=== PATIENT | female | born 1990 | race Hispanic/Latino ===

== ENCOUNTER 2017-02-17 09:56 | Observation (INO) | payer MEDICAID ==
[2017-02-17 11:23] LABS: APPEARANCE,URINE CLEAR (CLEAR); BILIRUBIN,URINE NEGATIVE (NEGATIVE); COLOR,URINE YELLOW (YELLOW); GLUCOSE, URINE (UA) NEGATIVE (NEGATIVE); KETONES,URINE NEGATIVE (NEGATIVE); LEUKOCYTE ESTERASE ,URINE NEGATIVE (NEGATIVE); NITRATE,URINE NEGATIVE (NEGATIVE); OCCULT BLOOD,URINE TRACE-INTACT (NEGATIVE); PROTEIN,URINE NEGATIVE (NEGATIVE); UROBILINOGEN,URINE 0.2 mg/dL (0.2-1.0)
[2017-02-17 11:46] LABS: BACTERIA,URINE Moderate /HPF (None Seen); RBC,URINE 0-1 /HPF (0-1)
== END 2017-02-17 18:55 | disposition home or self-care (01) ==
LOC: EDH 09:56 → LDH 10:11
PROVIDERS: ADMIT Internal Medicine; ATTEND Internal Medicine
DX: O26.893 Other specified pregnancy related conditions, third trimester (principal); R10.30 Lower abdominal pain, unspecified; M54.9 Dorsalgia, unspecified; Z3A.37 37 weeks gestation of pregnancy
CPT/HCPCS: 81001; 99285; G0378 ×9

== ENCOUNTER 2017-02-18 00:36 | Inpatient (IN) | payer MEDICAID ==
[~2017-02-18] VITALS: Ht 160 cm; Wt 92.5 kg
[2017-02-18] VITALS (10 sets, daily range): BP systolic 102–119; BP diastolic 38–74
[2017-02-18 01:03] LABS: APPEARANCE,URINE Clear (CLEAR); BILIRUBIN,URINE Negative (NEGATIVE); COLOR,URINE Yellow (YELLOW); GLUCOSE, URINE (UA) Negative (NEGATIVE); KETONES,URINE Negative (NEGATIVE); LEUKOCYTE ESTERASE ,URINE Small (NEGATIVE); NITRATE,URINE Negative (NEGATIVE); OCCULT BLOOD,URINE Negative (NEGATIVE); PROTEIN,URINE Negative (NEGATIVE)
[2017-02-18] MEDS ORDERED: CEFAZOLIN SODIUM 1 GM VIAL IVP PRN (01:15)
[2017-02-18] MEDS: LACTATED RINGERS 1000ML 1,000 ML IV SCH ×2 (01:25→03:47)
[2017-02-18 01:42] LABS: HEMATOCRIT 30.5 % (36-48); MEAN CORPUSCULAR HEMOGLOBIN 25.7 pg (27.0-33.0); MEAN CORPUSCULAR VOLUME 80.1 fL (79-99); PLATELET COUNT (AUTO) 249 K/uL (130-400); RED BLOOD CELL COUNT(AUTO) 3.81 MIL/uL (4.00-5.50); RED CELL DISTRIBUTION WIDTH 15.9 % (11.0-15.5); WHITE BLOOD COUNT (AUTO) 8.6 K/uL (4.8-10.8)
[2017-02-18 01:44] LABS: BACTERIA,URINE None Seen /HPF (None Seen); RBC,URINE None Seen /HPF (0-1); WBC,URINE 0-1 /HPF (0-1)
[2017-02-18 01:45] LABS: SQUAMOUS EPITHELIAL CELL,UR Few /LPF (0-2)
[2017-02-18 01:52] LABS: AMPHET/METH SCREEN,URINE NEGATIVE (NEGATIVE); BARBITURATE SCREEN, URINE NEGATIVE (NEGATIVE); BENZODIAZEPINES SCREEN,URINE NEGATIVE (NEGATIVE); CANNABINOID SCREEN,URINE NEGATIVE (NEGATIVE); COCAINE SCREEN,URINE NEGATIVE (NEGATIVE); OPIATE SCREEN,URINE NEGATIVE (NEGATIVE); PHENCYCLIDINE SCREEN,URINE NEGATIVE (NEGATIVE)
[2017-02-18] MEDS ORDERED: TERBUTALINE SULFATE VIAL 1MG/ML SQ ONE (01:57)
[2017-02-18] MEDS ORDERED: TERBUTALINE SULFATE VIAL 1MG/ML SQ SCH (02:00)
[2017-02-18] MEDS ORDERED: LACTATED RINGERS 1000ML 1,000 ML IV SCH (02:00)
[2017-02-18] MEDS: TERBUTALINE SULFATE VIAL 1MG/ML SQ SCH ×2 (03:02→03:46)
[2017-02-18] MEDS ORDERED: CALDOLOR 800MG+NS 250ML 250 ML IV ONE (07:21)
[2017-02-18] MEDS ORDERED: MIDAZOLAM HCL 1 MG/ML 2ML VIAL ONE (08:18)
[2017-02-18] MEDS ORDERED: FENTANYL CITRATE PF 50 MCG/1 ML 5ML AMP IV ONE (08:18)
[2017-02-18] MEDS ORDERED: GLYCOPYRROLATE 0.2 MG/ML 5 ML VIAL ONE ×2 (08:18→08:21)
[2017-02-18] MEDS ORDERED: ROCURONIUM 10MG/1ML SYR 10 MG/ML ML ONE (08:18)
[2017-02-18] MEDS ORDERED: PROPOFOL 10 MG/ML 20ML VIAL IV ONE ×2 (08:18→08:44)
[2017-02-18] MEDS ORDERED: LIDOCAINE 2%-EPI 1:200,000 20 ML VIAL IJ ONE (08:18)
[2017-02-18] MEDS ORDERED: LIDOCAINE HCL-MPF 1% 2ML VIAL ONE (08:18)
[2017-02-18] MEDS ORDERED: LIDOCAINE PF 2% 5ML ABBOJECT ONE (08:18)
[2017-02-18] MEDS ORDERED: LIDOCAINE HCL-MPF 2% 10ML AMP IJ ONE (08:18)
[2017-02-18] MEDS ORDERED: LIDOCAINE HCL 4% TOP SOL 50ML MM ONE (08:18)
[2017-02-18] MEDS ORDERED: NEOSTIGMINE METHYLSULFATE 1MG/ML IV ONE (08:18)
[2017-02-18] MEDS ORDERED: DEXAMETHASONE SOD PHOSPHATE 10MG/ML 1ML VIAL ONE (08:18)
[2017-02-18] MEDS ORDERED: MEPERIDINE-PF 25 MG/ML SYG ONE (09:08)
[2017-02-18] MEDS ORDERED: OXYTOCIN-LR 20 UNITS/1000 ML 1,000 ML IV PRN (09:16)
[2017-02-18] MEDS ORDERED: SODIUM CHLORIDE 0.9% 10 ML VIAL IVP PRN (09:30)
[2017-02-18] MEDS ORDERED: PROMETHAZINE HCL 25 MG/ML 1ML AMPULE IM PRN ×2 (09:30→11:00)
[2017-02-18] MEDS ORDERED: MEPERIDINE-PF 75 MG/ML SYG IM PRN (09:30)
[2017-02-18 09:34] LABS: RAPID PLASMA REAGIN NONREACTIVE (NONREACTIVE)
[2017-02-18] MEDS ORDERED: OXYTOCIN 10 USP UNITS/ML ONE (10:32)
[2017-02-18] MEDS ORDERED: NALOXONE HCL 0.4 MG/1 ML ML IVP PRN (11:00)
[2017-02-18] MEDS ORDERED: EPHEDRINE SULFATE 50 MG/ML AMPULE IVP PRN (11:00)
[2017-02-18] MEDS ORDERED: ONDANSETRON HCL 4 MG/2 ML VIAL IVP PRN ×2 (11:00)
[2017-02-18] MEDS ORDERED: METOCLOPRAMIDE 10 MG/2 ML VIAL IVP PRN (11:00)
[2017-02-18] MEDS ORDERED: MORPHINE SULFATE 2 MG/ML 1ML SYG IVP PRN (11:00)
[2017-02-18] MEDS ORDERED: HYDROCODONE/ACETAMINOPHEN 5/325 MG TAB PO PRN (11:00)
[2017-02-18] MEDS ORDERED: DiphenhydrAMINE HCL 50 MG/ML VIAL IVP PRN (11:00)
[2017-02-18] MEDS ORDERED: ONDANSETRON HCL 4 MG/2 ML 8 MG in SODIUM CHLORIDE 0.9% 50 ML IVP NR (11:00)
[2017-02-18 12:23] LABS: HEMATOCRIT 20.8 % (36-48)
[2017-02-18] MEDS: HYDROCODONE/ACETAMINOPHEN 5/325 MG TAB PO PRN (14:31)
[2017-02-18] MEDS: CALDOLOR 800MG+NS 250ML 250 ML IV SCH (17:45)
[2017-02-18] MEDS: DEXTROSE 5 %-0.45 % NACL 1,000 ML IV PRN (17:45)
[2017-02-18] MEDS: FLU VACC QS2017-18 36MOS UP/PF 60 MCG/0.5 ML ML IM SCH (18:58)
[2017-02-18 22:13] LABS: HEMATOCRIT 27.1 % (36-48)
[2017-02-19] MEDS: CALDOLOR 800MG+NS 250ML 250 ML IV SCH (00:56)
[2017-02-19 03:05] VITALS: BP 100/47
[2017-02-19] MEDS: DEXTROSE 5 %-0.45 % NACL 1,000 ML IV PRN (03:09)
[2017-02-19 05:23] LABS: HEMATOCRIT 23.5 % (36-48); MEAN CORPUSCULAR HEMOGLOBIN 28.1 pg (27.0-33.0); MEAN CORPUSCULAR HGB CONC 34.2 g/dL (32.0-36.0); MEAN CORPUSCULAR VOLUME 82.3 fL (79-99); NUCLEATED RED BLOOD CELLS 0.1 % (0.0-0.19); PLATELET COUNT (AUTO) 182 K/uL (130-400); RED BLOOD CELL COUNT(AUTO) 2.86 MIL/uL (4.00-5.50); RED CELL DISTRIBUTION WIDTH 16.8 % (11.0-15.5); WHITE BLOOD COUNT (AUTO) 7.4 K/uL (4.8-10.8)
[2017-02-19] MEDS ORDERED: LANOLIN 30GM OINTMENT TP PRN (07:45)
[2017-02-19] MEDS ORDERED: BISACODYL 10 MG SUPP.RECT RC PRN (07:45)
[2017-02-19] MEDS ORDERED: ACETAMINOPHEN-CODEINE 300/30MG TAB PO PRN (07:45)
[2017-02-19 07:54] VITALS: BP 107/64
[2017-02-19 08:16] LABS: HEPATITIS Bs ANTIGEN SCREEN P Negative (Negative)
[2017-02-19] MEDS: IBUPROFEN 600 MG TABLET PO PRN ×2 (08:44→16:10)
[2017-02-19] MEDS: SIMETHICONE 80 MG TAB.CHEW PO PRN ×2 (08:44→21:02)
[2017-02-19] MEDS: DOCUSATE SODIUM 100 MG CAP PO SCH ×2 (08:44→21:00)
[2017-02-19 11:40] VITALS: BP 121/65
[2017-02-19] MEDS: DIPH,PERTUSS(ACELL),TET VAC/PF 0.5 ML VIAL IM SCH (11:54)
[2017-02-19] MEDS: MEASLES/MUMPS/RUBELLA VACCINE, LIVE 0.5 ML/VIAL SQ SCH (11:55)
[2017-02-19 16:15] VITALS: BP 120/81
[2017-02-19] MEDS: FLU VACC QS2017-18 36MOS UP/PF 60 MCG/0.5 ML ML IM SCH (18:00)
[2017-02-19 20:22] VITALS: BP 101/57
[2017-02-19] MEDS: HYDROCODONE/ACETAMINOPHEN 5/325 MG TAB PO PRN (21:05)
[2017-02-19 23:05] VITALS: BP 94/48
[2017-02-20 03:15] VITALS: BP_SYST 95; BP_SYST 98; BP_DIAS 52; BP_DIAS 54
[2017-02-20 06:42] LABS: HEMATOCRIT 24.9 % (36-48); MEAN CORPUSCULAR HEMOGLOBIN 27.2 pg (27.0-33.0); MEAN CORPUSCULAR HGB CONC 32.7 g/dL (32.0-36.0); MEAN CORPUSCULAR VOLUME 83.4 fL (79-99); PLATELET COUNT (AUTO) 175 K/uL (130-400); RED BLOOD CELL COUNT(AUTO) 2.98 MIL/uL (4.00-5.50); WHITE BLOOD COUNT (AUTO) 6.4 K/uL (4.8-10.8)
[2017-02-20] MEDS: DIPH,PERTUSS(ACELL),TET VAC/PF 0.5 ML VIAL IM SCH (07:45)
[2017-02-20] MEDS: MEASLES/MUMPS/RUBELLA VACCINE, LIVE 0.5 ML/VIAL SQ SCH (07:45)
[2017-02-20 07:58] VITALS: BP 96/56
[2017-02-20] MEDS: DOCUSATE SODIUM 100 MG CAP PO SCH (09:22)
[2017-02-20] MEDS: SIMETHICONE 80 MG TAB.CHEW PO PRN (09:22)
[2017-02-20] MEDS: IBUPROFEN 600 MG TABLET PO PRN (09:23)
[2017-02-20 11:45] VITALS: BP 105/53
== END 2017-02-20 12:40 | disposition home or self-care (01) | DRG 540 ==
LOC: EDH 00:36 → LDH 00:40 → OBSVTOIN 00:40 → WSH 10:50
PROVIDERS: ADMIT Internal Medicine; ATTEND Internal Medicine
PROC: 3E0234Z Introduction of Serum, Toxoid and Vaccine into Muscle, Percutaneous Approach (ICD-10-PCS; 2017-02-18)
PROC: 3E0134Z Introduction of Serum, Toxoid and Vaccine into Subcutaneous Tissue, Percutaneous Approach (ICD-10-PCS; 2017-02-18)
PROC: 30233N1 Transfusion of Nonautologous Red Blood Cells into Peripheral Vein, Percutaneous Approach (ICD-10-PCS; 2017-02-18)
PROC: 10D00Z1 Extraction of Products of Conception, Low, Open Approach (ICD-10-PCS; 2017-02-18)
PROC: 3E0234Z Introduction of Serum, Toxoid and Vaccine into Muscle, Percutaneous Approach (ICD-10-PCS; principal; 2017-02-18 08:00)
DX: O34.211 Maternal care for low transverse scar from previous cesarean delivery (principal); J45.909 Unspecified asthma, uncomplicated; O99.62 Diseases of the digestive system complicating childbirth; K80.20 Calculus of gallbladder without cholecystitis without obstruction; O99.513 Diseases of the respiratory system complicating pregnancy, third trimester; Z37.0 Single live birth; Z3A.37 37 weeks gestation of pregnancy; Z23 Encounter for immunization
CPT/HCPCS: 36415; 36430; 59510; 76805; 80305; 81001; 85027; 86592; 86701; 86850; 86900; 86901; 86922; 87340; 87390; 90707; 90715; 96372; A4344; A4606; G0378; J0690; J1100; J1741; J2001; J2175; J2250; J2590; J2704; J2710; J3010; J3105; J3490; J7030; J7120; P9016; Q2038

== ENCOUNTER 2018-03-04 21:59 | Emergency (ER) | payer MEDICAID, OTHER ==
[2018-03-04] MEDS ORDERED: ASPIRIN 325 MG TABLET ONE (22:29)
[2018-03-04 23:08] LABS: BASOPHILS % (AUTO) 0.8 % (0.0-5.0); EOSINOPHILS % (AUTO) 2.1 % (0.0-8.0); HEMATOCRIT 32.7 % (36-48); LYMPHOCYTES % (AUTO) 43.7 % (21.0-51.0); MEAN CORPUSCULAR HEMOGLOBIN 28.2 pg (27.0-33.0); MEAN CORPUSCULAR HGB CONC 32.7 g/dL (32.0-36.0); MEAN CORPUSCULAR VOLUME 86.3 fL (79-99); MONOCYTES % (AUTO) 9.7 % (3.0-13.0); NEUTROPHILS % (AUTO) 43.7 % (40.0-77.0); PLATELET COUNT (AUTO) 291 K/uL (130-400); RED BLOOD CELL COUNT(AUTO) 3.79 MIL/uL (4.00-5.50); RED CELL DISTRIBUTION WIDTH 15.2 % (11.0-15.5); WHITE BLOOD COUNT (AUTO) 7.8 K/uL (4.8-10.8)
[2018-03-04 23:12] LABS: CREATININE 0.7 mg/dL (0.5-1.5); POTASSIUM 4.3 mmol/L (3.5-5.1)
[2018-03-04 23:22] LABS: INR 0.94 (0.85-1.15); PARTIAL THROMBOPLASTIN TIME 32.5 SEC (26.3-35.5); PROTHROMBIN TIME 9.9 SEC (9.6-11.6)
[2018-03-04 23:32] LABS: ALBUMIN 3.9 g/dL (3.5-5.0); BILIRUBIN,TOTAL 0.2 mg/dL (0.2-1.0); TOTAL PROTEIN, SERUM 7.6 g/dL (6.0-8.3)
[2018-03-05] MEDS ORDERED: KETOROLAC TROMETHAMINE 30MG/ML ONE (01:10)
== END 2018-03-05 01:41 | disposition home or self-care (01) ==
LOC: EDH 21:59
DX: R07.89 Other chest pain (principal); J45.909 Unspecified asthma, uncomplicated; Z98.890 Other specified postprocedural states
CPT/HCPCS: 36415; 71045; 80053; 81025; 82550; 83874; 84484; 85025; 85378; 85610; 85730; 93005; 96374; 99284; J1885

== ENCOUNTER 2018-06-26 09:15 | Emergency (ER) | payer OTHER ==
[2018-06-26 09:59] LABS: BASOPHILS % (AUTO) 1.4 % (0.0-5.0); EOSINOPHILS % (AUTO) 1.3 % (0.0-8.0); HEMATOCRIT 33.8 % (36-48); LYMPHOCYTES % (AUTO) 26.4 % (21.0-51.0); MEAN CORPUSCULAR HGB CONC 32.6 g/dL (32.0-36.0); MEAN CORPUSCULAR VOLUME 82.8 fL (79-99); MONOCYTES % (AUTO) 7.1 % (3.0-13.0); NEUTROPHILS % (AUTO) 63.8 % (40.0-77.0); PLATELET COUNT (AUTO) 281 K/uL (130-400); RED BLOOD CELL COUNT(AUTO) 4.09 MIL/uL (4.00-5.50); RED CELL DISTRIBUTION WIDTH 16.2 % (11.0-15.5); WHITE BLOOD COUNT (AUTO) 8.7 K/uL (4.8-10.8)
[2018-06-26 10:16] LABS: CREATININE 0.6 mg/dL (0.5-1.5)
[2018-06-26 10:21] LABS: BILIRUBIN,TOTAL 0.2 mg/dL (0.2-1.0); TOTAL PROTEIN, SERUM 7.9 g/dL (6.0-8.3)
== END 2018-06-26 11:13 | disposition home or self-care (01) ==
LOC: EDH 09:15
DX: I89.0 Lymphedema, not elsewhere classified (principal)
CPT/HCPCS: 36415; 80053; 81025; 85025; 85378

== ENCOUNTER 2018-09-18 21:26 | Emergency (ER) | payer OTHER ==
[2018-09-18 21:55] LABS: APPEARANCE,URINE Cloudy (CLEAR); BILIRUBIN,URINE Negative (NEGATIVE); COLOR,URINE Yellow (YELLOW); GLUCOSE, URINE (UA) Negative (NEGATIVE); KETONES,URINE 15 mg/dL (NEGATIVE); LEUKOCYTE ESTERASE ,URINE Negative (NEGATIVE); NITRATE,URINE Negative (NEGATIVE); OCCULT BLOOD,URINE Negative (NEGATIVE); PH,URINE 5.5 (5.0-8.0); PROTEIN,URINE Trace mg/dL (NEGATIVE)
[2018-09-18 21:58] LABS: HCG,QUAL RESULT POSITIVE (NEGATIVE)
[2018-09-18 22:18] LABS: RBC,URINE None Seen /HPF (0-1); WBC,URINE 0-1 /HPF (0-1)
[2018-09-18 22:19] LABS: AMORPHOUS SEDIMENT,UR Few /LPF (None Seen); BACTERIA,URINE Few /HPF (None Seen); SQUAMOUS EPITHELIAL CELL,UR 0-2 /HPF (0-2)
[2018-09-18 23:29] LABS: BASOPHILS % (AUTO) 1.1 % (0.0-5.0); EOSINOPHILS % (AUTO) 1.6 % (0.0-8.0); HEMATOCRIT 30.8 % (36-48); LYMPHOCYTES % (AUTO) 27.8 % (21.0-51.0); MEAN CORPUSCULAR HEMOGLOBIN 26.8 pg (27.0-33.0); MONOCYTES % (AUTO) 8.8 % (3.0-13.0); NEUTROPHILS % (AUTO) 60.7 % (40.0-77.0); PLATELET COUNT (AUTO) 259 K/uL (130-400); RED BLOOD CELL COUNT(AUTO) 3.81 MIL/uL (4.00-5.50); RED CELL DISTRIBUTION WIDTH 16.2 % (11.0-15.5); WHITE BLOOD COUNT (AUTO) 10.1 K/uL (4.8-10.8)
[2018-09-18 23:39] LABS: CREATININE 0.7 mg/dL (0.5-1.5); POTASSIUM 3.5 mmol/L (3.5-5.1)
[2018-09-19 00:04] LABS: ALBUMIN 3.6 g/dL (3.5-5.0); BILIRUBIN,TOTAL 0.2 mg/dL (0.2-1.0); TOTAL PROTEIN, SERUM 7.2 g/dL (6.0-8.3)
== END 2018-09-19 00:40 | disposition home or self-care (01) ==
LOC: EDH 21:26
DX: O21.8 Other vomiting complicating pregnancy (principal); R53.1 Weakness; Z3A.01 Less than 8 weeks gestation of pregnancy
CPT/HCPCS: 36415; 76801; 80053; 81001; 81025; 82150; 83690; 84702; 85025; 96360

== ENCOUNTER 2018-09-25 18:37 | Emergency (ER) | payer OTHER ==
[2018-09-25] MEDS ORDERED: ONDANSETRON ODT 4 MG TAB ONE (18:52)
== END 2018-09-25 19:22 | disposition home or self-care (01) ==
LOC: EDH 18:37
DX: O21.0 Mild hyperemesis gravidarum (principal); Z3A.01 Less than 8 weeks gestation of pregnancy
CPT/HCPCS: 96372

== ENCOUNTER 2018-10-29 12:41 | Emergency (ER) | payer MEDICAID ==
[2018-10-29] MEDS ORDERED: ONDANSETRON HCL 4 MG/2 ML VIAL ONE (13:56)
[2018-10-29] MEDS ORDERED: SODIUM CHLORIDE 0.9% 1000ML 1,000 ML IV ONE (13:57)
[2018-10-29 15:29] LABS: BASOPHILS % (AUTO) 0.9 % (0.0-5.0); EOSINOPHILS % (AUTO) 0.8 % (0.0-8.0); HEMATOCRIT 31.9 % (36-48); LYMPHOCYTES % (AUTO) 19.5 % (21.0-51.0); MEAN CORPUSCULAR HEMOGLOBIN 27.6 pg (27.0-33.0); MEAN CORPUSCULAR VOLUME 83.7 fL (79-99); MONOCYTES % (AUTO) 8.8 % (3.0-13.0); PLATELET COUNT (AUTO) 236 K/uL (130-400); RED BLOOD CELL COUNT(AUTO) 3.81 MIL/uL (4.00-5.50); RED CELL DISTRIBUTION WIDTH 17.5 % (11.0-15.5)
[2018-10-29 15:36] LABS: CREATININE 0.7 mg/dL (0.5-1.5); POTASSIUM 3.1 mmol/L (3.5-5.1)
[2018-10-29 15:40] LABS: ALBUMIN 3.2 g/dL (3.5-5.0); BILIRUBIN,TOTAL 0.5 mg/dL (0.2-1.0); TOTAL PROTEIN, SERUM 7.1 g/dL (6.0-8.3)
[2018-10-29] MEDS ORDERED: POTASSIUM CHLORIDE 20 MEQ ERTAB PO ONE (15:42)
[2018-10-29] MEDS ORDERED: MAGNESIUM OXIDE 400 MG TABLET PO ONE (15:42)
== END 2018-10-29 16:01 | disposition home or self-care (01) ==
LOC: EDH 12:41
DX: O21.1 Hyperemesis gravidarum with metabolic disturbance (principal); Z3A.12 12 weeks gestation of pregnancy
CPT/HCPCS: 36415; 80053; 83690; 85025; 96361; 96374; 99285; J2405; J7030

== ENCOUNTER 2019-01-05 13:48 | Observation (INO) | payer MEDICAID | END 2019-01-05 15:50 | disposition home or self-care (01) | LOC: EDH 13:48 → LDH 14:19 | DX: O69.89X0 Labor and delivery complicated by other cord complications, not applicable or unspecified (principal); Z3A.23 23 weeks gestation of pregnancy | CPT/HCPCS: 59025; 76805; 99284; G0378 ×2 ==

== ENCOUNTER 2019-05-17 04:30 | Inpatient (IN) | payer MEDICAID ==
[~2019-05-17] VITALS: Ht 160 cm; Wt 101.2 kg
[2019-05-17] MEDS ORDERED: LACTATED RINGERS 1000ML IV ONE (05:00)
[2019-05-17 05:17] LABS: APPEARANCE,URINE Clear (CLEAR); BILIRUBIN,URINE Negative (NEGATIVE); COLOR,URINE Yellow (YELLOW); GLUCOSE, URINE (UA) Negative (NEGATIVE); KETONES,URINE Negative (NEGATIVE); LEUKOCYTE ESTERASE ,URINE Negative (NEGATIVE); NITRATE,URINE Negative (NEGATIVE); OCCULT BLOOD,URINE Moderate (NEGATIVE); PROTEIN,URINE Negative (NEGATIVE)
[2019-05-17 05:51] LABS: AMPHET/METH SCREEN,URINE NEGATIVE (NEGATIVE); BARBITURATE SCREEN, URINE NEGATIVE (NEGATIVE); BENZODIAZEPINES SCREEN,URINE NEGATIVE (NEGATIVE); CANNABINOID SCREEN,URINE NEGATIVE (NEGATIVE); COCAINE SCREEN,URINE NEGATIVE (NEGATIVE); OPIATE SCREEN,URINE NEGATIVE (NEGATIVE); PHENCYCLIDINE SCREEN,URINE NEGATIVE (NEGATIVE)
[2019-05-17] MEDS ORDERED: LACTATED RINGERS 1000ML 1,000 ML IV PRN (05:51)
[2019-05-17 05:55] VITALS: BP 123/70
[2019-05-17] MEDS ORDERED: ACET-2123 PO (06:00)
[2019-05-17 06:01] LABS: HEMATOCRIT 27.4 % (36-48); MEAN CORPUSCULAR HEMOGLOBIN 24.1 pg (27.0-33.0); MEAN CORPUSCULAR HGB CONC 29.9 g/dL (32.0-36.0); MEAN CORPUSCULAR VOLUME 80.6 fL (79-99); PLATELET COUNT (AUTO) 271 K/uL (130-400); RED CELL DISTRIBUTION WIDTH 15.9 % (11.0-15.5); WHITE BLOOD COUNT (AUTO) 8.8 K/uL (4.8-10.8)
[2019-05-17] MEDS ORDERED: LACTATED RINGERS 1000ML 1,000 ML IV SCH (07:00)
[2019-05-17 09:32] LABS: RAPID PLASMA REAGIN NONREACTIVE (NONREACTIVE)
[2019-05-17] MEDS ORDERED: CEFAZOLIN SODIUM 1 GM VIAL ONE (09:59)
[2019-05-17] MEDS ORDERED: CEFAZOLIN SODIUM 1 GM VIAL IVP PRN (11:30)
[2019-05-17] MEDS ORDERED: FENTANYL CITRATE PF 50 MCG/1 ML 2ML VIAL ONE (11:58)
[2019-05-17] MEDS ORDERED: DURAMORPH PF1 MG/ML 10ML AMP IV ONE (11:58)
[2019-05-17] MEDS ORDERED: CEFAZOLIN SODIUM 1 GM VIAL IVP ONE (12:02)
[2019-05-17] MEDS ORDERED: PROPOFOL 10 MG/ML 20ML VIAL IV ONE (12:23)
[2019-05-17] MEDS ORDERED: OXYTOCIN 10 UNIT/1ML 10ML VIAL ONE (12:27)
[2019-05-17] MEDS ORDERED: ONDANSETRON HCL 4 MG/2 ML VIAL ONE (13:10)
[2019-05-17] MEDS ORDERED: LANOLIN 30GM OINTMENT TP PRN (14:30)
[2019-05-17] MEDS ORDERED: DIPH,PERTUSS(ACELL),TET VAC/PF 0.5 ML VIAL IM SCH (14:30)
[2019-05-17] MEDS ORDERED: MEASLES/MUMPS/RUBELLA VACCINE, LIVE 0.5 ML/VIAL SQ SCH (14:30)
[2019-05-17] MEDS ORDERED: ACETAMINOPHEN EXTRA STRENGTH 500 MG TABLET PO PRN (14:30)
[2019-05-17] MEDS ORDERED: IBUPROFEN 600 MG TABLET PO PRN (14:30)
[2019-05-17] MEDS ORDERED: BISACODYL 10 MG SUPP.RECT RC PRN (14:30)
[2019-05-17] MEDS ORDERED: ACETAMINOPHEN-CODEINE 300/30MG TAB PO PRN (14:30)
[2019-05-17] MEDS ORDERED: CALDOLOR 800MG+NS 250ML 250 ML IV ONE (14:56)
[2019-05-17] MEDS ORDERED: OXYTOCIN-LR 20 UNITS/1000 ML 1,000 ML IV ONE (14:56)
[2019-05-17] MEDS ORDERED: DiphenhydrAMINE HCL 50 MG/ML VIAL IVP PRN (15:00)
[2019-05-17] MEDS ORDERED: EPHEDRINE SULFATE 50 MG/ML AMPULE IVP PRN (15:00)
[2019-05-17] MEDS ORDERED: ONDANSETRON HCL 4 MG/2 ML VIAL IVP PRN (15:00)
[2019-05-17] MEDS ORDERED: NALOXONE HCL 0.4 MG/1 ML ML IVP PRN ×2 (15:00)
[2019-05-17] MEDS ORDERED: MEPERIDINE HCL/PF 25 MG/0.5 ML AMPUL IV PRN (15:15)
[2019-05-17] MEDS ORDERED: LORATADINE 10 MG TABLET PO PRN (16:00)
[2019-05-17 17:03] LABS: BASOPHILS % (AUTO) 0.2 % (0.0-5.0); EOSINOPHILS % (AUTO) 0.2 % (0.0-8.0); HEMATOCRIT 25.4 % (36-48); LYMPHOCYTES % (AUTO) 14.8 % (21.0-51.0); MEAN CORPUSCULAR HGB CONC 29.5 g/dL (32.0-36.0); MEAN CORPUSCULAR VOLUME 81.2 fL (79-99); MONOCYTES % (AUTO) 6.4 % (3.0-13.0); NEUTROPHILS % (AUTO) 78.1 % (40.0-77.0); PLATELET COUNT (AUTO) 259 K/uL (130-400); RED BLOOD CELL COUNT(AUTO) 3.13 MIL/uL (4.00-5.50)
[2019-05-17 19:59] VITALS: BP 101/66
--- NOTE | 2019-05-17 20:23 | NUR ---
@2000 pt found sitting up in bed, explaining plan of care: assessment & corinna care with placement of disposable underwear for comfort; explaining plan for vs & fundal assessment with observation of bleeding & dressing included. Pt voices understanding & agrees to plan. Informing of normal feeling of soreness to incision, pt agrees, states "its a 6 right now but I don't need pain medications"; explaining Caldolor iv scheduled for 2300, and prn pain med available if needed. Pt agrees to plan. Spouse asleep at bedside; pt reports baby is in nursery. Encouraging clear liquids, pt agrees requesting jello; denies n/v at present. Encouraging changing position at least every 2 hours; pt states "yes, I have had gas pain before but i will stay here for now", explaining will return at 2200 to assist with turning, pt agrees to plan. Informing of plan to remove f/c and sit up in chair in am; pt agrees to plan. Encouraging pt to call for assistance or concerns, explaining normal rubra at present, instructing to call for increase bleeding or pain; pt agrees to teaching; nurse call button within reach, bed down & side rails up x two; SCD's in place; IV infusing at 150ml/hr via pump.
[2019-05-17] MEDS: DOCUSATE SODIUM 100 MG CAP PO SCH (21:50)
[2019-05-17] MEDS: CALDOLOR 800MG+NS 250ML 250 ML IV PRN (22:40)
--- NOTE | 2019-05-17 22:45 | NUR ---
Explaining Caldolor scheduled ivpb; reinforcing teaching on desired effects & possible common side effects, pt voices understanding , rates pain score at6/10. Addendum: 05/17/19 at 2553 by KENNETH CASANOVA RN RN Amended: Links added.
[2019-05-17 23:24] VITALS: BP 99/60
--- NOTE | 2019-05-17 23:29 | NUR ---
Pt reports Caldolor effects decreasing discomfort to incision at 4 out 10, requesting po pain med. Offering tylenol #3 po and explaining desired effects with common side effects; pt agrees to med administration. Addendum: 05/17/19 at 2331 by KENNETH CASANOVA RN RN Amended: Links added.
[2019-05-17] MEDS: HYDROCODONE/ACETAMINOPHEN 5/325 MG TAB PO PRN (23:39)
--- NOTE | 2019-05-17 23:40 | NUR ---
Pt requesting po prn pain med. 2 tablets [place] presented & reinforcing teaching on med; pt refusing 2 tablets, states "i only need one"; 1 tablet [place] given po
--- NOTE | 2019-05-18 00:55 | NUR ---
Pt requesting baby be taken to NBN until next feeding, states "i am really tired, have not slept all day"; Susanna Linda RN , NBN notified of pt request.
[2019-05-18 04:13] VITALS: BP 96/50
--- NOTE | 2019-05-18 04:45 | NUR ---
Explaining blood sample needed for ordered CBC; informing md ordering cbc due to anemia. Pt voices understanding & agrees to procedure.
[2019-05-18 04:55] LABS: BASOPHILS % (AUTO) 0.3 % (0.0-5.0); EOSINOPHILS % (AUTO) 0.9 % (0.0-8.0); HEMATOCRIT 22.9 % (36-48); MEAN CORPUSCULAR HEMOGLOBIN 24.2 pg (27.0-33.0); MEAN CORPUSCULAR HGB CONC 29.7 g/dL (32.0-36.0); MEAN CORPUSCULAR VOLUME 81.5 fL (79-99); MONOCYTES % (AUTO) 8.3 % (3.0-13.0); NEUTROPHILS % (AUTO) 67.2 % (40.0-77.0); PLATELET COUNT (AUTO) 210 K/uL (130-400); RED BLOOD CELL COUNT(AUTO) 2.81 MIL/uL (4.00-5.50); RED CELL DISTRIBUTION WIDTH 15.9 % (11.0-15.5)
--- NOTE | 2019-05-18 05:15 | NUR ---
Dr Albright notified of pt 5am hgb 6.8 & Hct 22; monique bird to scant tonight; Order received to keep RBC's on hold, & report pt s/s of anemia today.
[2019-05-18] MEDS ORDERED: DEXTROSE 5 %-0.45 % NACL 1,000 ML IV PRN (06:30)
[2019-05-18] MEDS: CALDOLOR 800MG+NS 250ML 250 ML IV PRN (06:43)
[2019-05-18 07:10] LABS: HEPATITIS Bs ANTIGEN SCREEN P Negative (Negative)
[2019-05-18 07:35] VITALS: BP 105/56
[2019-05-18] MEDS: SIMETHICONE 80 MG TAB.CHEW PO PRN ×3 (08:55→21:13)
[2019-05-18] MEDS: DOCUSATE SODIUM 100 MG CAP PO SCH ×2 (08:55→21:13)
--- NOTE | 2019-05-18 09:05 | NUR ---
DRESSING REMOVED. INCISION INTACT. STERISTRIPS AND TELFA PAD APPLIED. DON CATHETER REMOVED WITH TIP INTACT. PERICARE GIVEN. ASSISTED PATIENT OOB TO BEDSIDE CHAIR. NO DIZZINESS REPORTED. CALL LIGHT LEFT IN REACH. ADVISED PATIENT TO CALL WHEN NEEDING TO AMBULATE FOR THE FIRST TIME OR WITH ANY NEEDS OR CONCERNS.
[2019-05-18] MEDS ORDERED: ACETAMINOPHEN EXTRA STRENGTH 500 MG TABLET PO PRN ×2 (10:05→15:00)
[2019-05-18] MEDS: ACETAMINOPHEN-CODEINE 300/30MG TAB PO PRN ×2 (10:47→20:08)
[2019-05-18 11:25] VITALS: BP 98/52
--- NOTE | 2019-05-18 11:55 | NUR ---
PATIENT C/O PAIN TO SHOULDER . DULCOLAX SUPPOSITORY OFFERED, PATIENT DECLINED. ADVISED PATIENT TO AMBULATE AND PRUNE JUICE GIVEN.
--- NOTE | 2019-05-18 12:05 | NUR ---
LANOLIN GIVEN TO PATIENT. INSTRUCTED PATIENT ON USE AND DESIRED EFFECTS. PATIENT VOICED UNDERSTANDING.
--- NOTE | 2019-05-18 13:00 | NUR ---
ASSISTED PATIENT TO RESTROOM. PATIENT ABLE TO VOID, 300ML MEASURED. PATIENT WAS ASSISTED INTO BED, TOLERATED AMBULATION WELL. CALL LIGHT LEFT IN REACH. ADVISED PATIENT TO CALL WITH ANY NEEDS.
[2019-05-18] MEDS ORDERED: ACETAMINOPHEN-CODEINE 300/30MG TAB PO PRN (15:00)
[2019-05-18] MEDS ORDERED: IBUPROFEN 600 MG TABLET PO PRN (15:15)
--- NOTE | 2019-05-18 15:25 | NUR ---
UPDATED ON PATIENT'S STATUS VIA TELEPHONE. MD WILL ROUND ON PATIENT TOMORROW. NO NEW ORDERS RECEIVED.
[2019-05-18 16:07] VITALS: BP 109/59
--- NOTE | 2019-05-18 18:25 | NUR ---
PATIENT AMBULATING IN HALLWAY. NO DIZZINESS OR PAIN REPORTED.
[2019-05-18 19:26] VITALS: BP 119/55
[2019-05-18 23:59] VITALS: BP 103/56
[2019-05-19] MEDS: HYDROCODONE/ACETAMINOPHEN 5/325 MG TAB PO PRN (00:58)
[2019-05-19 03:48] VITALS: BP 95/56
[2019-05-19 07:21] VITALS: BP 112/57
[2019-05-19] MEDS: ACETAMINOPHEN-CODEINE 300/30MG TAB PO PRN (07:42)
[2019-05-19] MEDS: SIMETHICONE 80 MG TAB.CHEW PO PRN (09:16)
[2019-05-19] MEDS: DOCUSATE SODIUM 100 MG CAP PO SCH (09:16)
--- NOTE | 2019-05-19 09:20 | NUR ---
verbal and written discharge instructions given, informed of the follow up appointment,all questions answered. informed to call the doctor for future concerns, pt voiced understanding to all things discussed Addendum: 05/19/19 at 0931 by PRINCESS COONEY RN Amended: Links added.
[2019-05-19 11:33] VITALS: BP 108/59
[2019-05-19] MEDS ORDERED: IBUP-2070 PO (12:00)
[2019-05-19] MEDS ORDERED: ACET1TAB25 PO (12:01)
[2019-05-19] MEDS ORDERED: DOCU-116 PO (12:01)
[2019-05-19] MEDS ORDERED: FERR325T22 PO (12:01)
--- NOTE | 2019-05-19 12:33 | NUR ---
pt is dismissed in stable condition, brought to private car via wheelchair by shawn Del Cid pcp Addendum: 05/19/19 at 1233 by PRINCESS COONEY RN Amended: Links added.
== END 2019-05-19 12:35 | disposition home or self-care (01) | DRG 540 ==
LOC: EDH 04:30 → OBSVTOIN 04:31 → LDH 04:31 → WSH 16:00
PROVIDERS: ADMIT Internal Medicine; ATTEND Internal Medicine
PROC: 10D00Z1 Extraction of Products of Conception, Low, Open Approach (ICD-10-PCS; principal; 2019-05-17 11:30)
DX: O34.211 Maternal care for low transverse scar from previous cesarean delivery (principal); O41.03X0 Oligohydramnios, third trimester, not applicable or unspecified; Z37.0 Single live birth; O48.1 Prolonged pregnancy; O69.2XX0 Labor and delivery complicated by other cord entanglement, with compression, not applicable or unspecified; O99.52 Diseases of the respiratory system complicating childbirth; O69.81X0 Labor and delivery complicated by cord around neck, without compression, not applicable or unspecified; J45.909 Unspecified asthma, uncomplicated; O99.214 Obesity complicating childbirth; O34.03 Maternal care for unspecified congenital malformation of uterus, third trimester; O99.02 Anemia complicating childbirth; Z3A.49 Greater than 42 weeks gestation of pregnancy; E66.9 Obesity, unspecified; D64.9 Anemia, unspecified
CPT/HCPCS: 36415; 59510; 76805; 80305; 81003; 82948; 85025; 85027; 86592; 86701; 86850; 86900; 86901; 86922; 87340; 87390; 96360; A4344; G0378; J0690; J1741; J2274; J2405; J2590; J2704; J3010